=== PATIENT | male | born 1955 | race Caucasian/White ===

== ENCOUNTER 2017-08-02 06:14 | Day surgery (SDC) | payer OTHER ==
[~2017-08-02] VITALS: Ht 188 cm; Wt 125.9 kg
[2017-08-02] MEDS ORDERED: EPINEPHrine 1:1,000 [1 MG/ML] AMP IM ONE (06:15)
[2017-08-02] MEDS ORDERED: LIDOCAINE HCL 2% 5 ML JELLY TP ONE (06:15)
[2017-08-02] MEDS ORDERED: ALBUTEROL SULFATE 2.5 MG/0.5 ML NEB SOLUTION NEB ONE (06:15)
[2017-08-02] MEDS ORDERED: BENZOCAINE 20% 50 MCG/SPRAY 57 GM TP ONE (06:15)
[2017-08-02] MEDS ORDERED: LIDOCAINE HCL 4% 50 ML SOLUTION TP ONE (06:15)
[2017-08-02] MEDS ORDERED: SODIUM CHLORIDE 0.9% 1,000 ML IV ONE ×2 (06:35→08:00)
[2017-08-02] MEDS ORDERED: MECL-111 PO (07:14)
[2017-08-02] MEDS ORDERED: ALBU8HFA IH (07:14)
[2017-08-02] MEDS ORDERED: TIOT4MIS2 PO (07:14)
[2017-08-02] MEDS ORDERED: MONT10TA21 PO (07:14)
[2017-08-02] MEDS ORDERED: HYDR-309 PO (07:14)
[2017-08-02] MEDS ORDERED: TIOT185 IH (07:14)
[2017-08-02] MEDS ORDERED: MOME13HF2 IH (07:14)
[2017-08-02] MEDS ORDERED: SIMV-260 PO (07:14)
[2017-08-02] MEDS ORDERED: LORA10TA7 PO (07:14)
[2017-08-02] MEDS ORDERED: FAMO20 PO (07:14)
[2017-08-02] MEDS ORDERED: FLUT16H NASAL (07:20)
[2017-08-02] MEDS ORDERED: GUAI600T50 PO (07:20)
[2017-08-02] MEDS ORDERED: DOXA2TAB PO (07:20)
[2017-08-02] MEDS ORDERED: MUPI15CR12 NASAL (07:20)
[2017-08-02] MEDS ORDERED: ASPI81 PO (07:20)
[2017-08-02] MEDS ORDERED: GABA-531 PO (07:20)
[2017-08-02] MEDS ORDERED: FINA5TAB41 PO (07:20)
[2017-08-02] MEDS ORDERED: MIDAZOLAM HCL 2 MG/2 ML VIAL ONE ×2 (07:30→08:04)
[2017-08-02] MEDS ORDERED: FentaNYL CITRATE-PF 100 MCG/2 ML VIAL ONE ×2 (07:30→08:04)
[2017-08-02] MEDS ORDERED: MethylPREDNISolone SOD SUCC 125 MG/2 ML VIAL IVP ONE (08:30)
[2017-08-02] MEDS ORDERED: OXYGEN THERAPY IH SCH (20:00)
[2017-08-07 07:37] LABS: MTB NUCL.ACID AMPLIF W/O AFBCS Negative (Negative)
== END 2017-08-02 10:15 | disposition home or self-care (01) ==
LOC: SURGERY 06:14
PROVIDERS: ATTEND Internal Medicine Critical Care Medicine
DX: J38.4 Edema of larynx (principal); B37.0 Candidal stomatitis; J44.9 Chronic obstructive pulmonary disease, unspecified; M19.90 Unspecified osteoarthritis, unspecified site; J84.111 Idiopathic interstitial pneumonia, not otherwise specified; Z98.890 Other specified postprocedural states; Z79.82 Long term (current) use of aspirin; Z79.899 Other long term (current) drug therapy
CPT/HCPCS: 31623; 31624; 71045; 87070; 87147; 87205; 87220; 88108; 88312; J0171; J2250; J2930; J3010; J7030; 87015; 87556